=== PATIENT | male | born 1960 | race Caucasian/White ===

== ENCOUNTER 2017-04-21 12:26 | Emergency (ER) | payer SELFPAY ==
[~2017-04-21] VITALS: Ht 179.1 cm; Wt 73.9 kg
--- NOTE | 2017-04-21 12:49 | ED HAND/WRIST INJURY COMPLAINT ---
History of Present Illness General Chief Complaint: Fall Stated Complaint: LEFT HAND AND FOOT INJURY, FELL ON ICE Source: patient, old records Exam Limitations: no limitations Vital Signs & Intake/Output Vital Signs & Intake/Output Vital Signs Date Time Temp Pulse Resp B/P B/P Pulse O2 O2 Flow FiO2 Mean Ox Delivery Rate 04/21 1414 98.5 68 18 154/84 100 04/21 1230 99.7 72 18 148/97 100 Room Air Allergies Coded Allergies: No Known Allergies (04/21/17) Triage Note: PT STATES THAT 4 WEEKS AGO HE FELL AND HURT HIS L WRIST, STATES THAT PAIN WENT AWAY. WOKE 2 DAYS AGO WITH L WRIST SWOLLEN A ND WARM TO THE TOUCH. HAS BEEN TAKING ADVIL WITH NO RELIEF. Triage Nurses Notes Reviewed? yes Occurred: 1 month ago Duration: constant Timing: recent history Injury Environment: home Severity: moderate Severity Numbers: 5 Pain/Injury Location: Left: Wrist. Context: fall Method of Injury: fall Modifying Factors: Worsens With: movement. Associated Symptoms: swelling HPI: 56-year-old male with no medical history presents to ER complaining one-day history of left wrist swelling pain worse with range of motion. He states about 1 month ago he fell on his wrist he's been taking Tylenol and Advil and was doing better up until this morning when he states he woke up and it was swollen. He denies any bruising redness warmth fever chills. He states that he slipped on ice about a month ago he also injured the top of his left foot. He has not sought care for the symptoms until today. No hip knee or other leg pain there is no other injury from the fall no numbness or tingling (Ben Rai) Past History Travel History Traveled to [place] past 21 day No Medical History Any Pertinent Medical History? none Neurological: NONE EENT: NONE Cardiovascular: NONE Respiratory: NONE Gastrointestinal: NONE Renal: NONE Musculoskeletal: NONE Psychiatric: NONE Endocrine: NONE Blood Disorders: NONE Cancer(s): NONE SHAKE CUTTER/Reproductive: NONE Surgical History Surgical History: non-contributory Psychosocial History What is your primary language Ecuadorean Tobacco Use: Never used ETOH Use: denies use Illicit Drug Use: denies illicit drug use Family History Hx Contributory? No (Ben Rai) Review of Systems Review of Systems Constitutional: Reports: see HPI. Comments Review of systems: See HPI, All other systems negative. Constitutional, no chills no fever, no malaise HEENT: no sore throat no congestion Cardiovascular: No chest pain Skin: no rashes, no change in skin Respiratory: No dyspnea no cough no sputum GI: No nausea no vomiting, no diarrhea : No dysuria (+)No joint pain, no back pain Neurologic: , no headache Heme/endocrine: No bruising Immunology: No lymphadenopathy (Ben Rai) Physical Exam Physical Exam General Appearance: well developed/nourished, no apparent distress, alert Hand Left: tenderness over the dorsal wrist Hand Right: normal inspection, normal range of motion Comments: Well-developed well-nourished patient in no apparent distress. HEENT: Atraumatic, extraocular motion intact Neck: Supple, FROM Back: FROM Respiratory: No respiratory distress. Patient speaking in full complete sentences. Shoulder: Atraumatic/Stable. FROM . Elbow: Atraumatic/stable. FROM. No laxity Upper arm/Forearm: Atraumatic. Nontender. No edema, 5 out of 5 manager installation strength noted to bilateral upper extremities Hand/Wrist: swelling and tendenress to the dorsal wrist, no ecchymosis, no erythema, Skin intact. from however pt has pain with flexion/extension of wrist Pulses: Normal/equal radial pulses bilaterally. Brisk cap refill Hip/Pelvis: Atraumatic/Stable. FROM. Knee: Atraumatic/stable. FROM Leg: Atraumatic. Nontender. No edema, 5 out of 5 strength in the lower extremity, normal dorsiflexion of great toe bilaterally, gross sensation is intact Ankle/Foot: tenderness over the left dorsal foot, plantar aspect is aAtraumatic /stable. no erythema, warmth, or swelling.Skin intact. FROM of ankle and foot. No swelling, no effusion. No laxity on exam Pulses: Normal/equal DP/PT pulses bilaterally. Brisk cap refill Neuro: awake, alert, and oriented to person, place and time. There were no obvious focal neurologic abnormalities. Skin: Warm & dry;No appreciable rash on exposed skin Psych: Mood affect normal, normal memory normal judgment. (Ben Rai) Progress Differential Diagnosis: cellulitis, contusion, compartment syndrome, dislocation , fracture, septic arthritis, sprain Plan of Care: Orders Procedure Date/time Status Durable Medical Equipment 04/21 1425 Active Patient medicated with Motrin x-rays ordered I discussed with the patient at length all of their results. left wrist cock-up brace applied I had an extensive conversation regarding need for close follow up with their primary care physician/ ortho this week as well as return precautions. I answered all of their questions, they feel comfortable with the plan and follow-up care. Diagnostic Imaging: Viewed by Me: Radiology Read. Discussed w/RAD: Radiology Read. Radiology Impression: PATIENT: ALKA MENDOZA PRESENT AGE: 56 PATIENT ACCOUNT NO: [id number] : 62 LOCATION: [facility] ORDERING PHYSICIAN: Ben MIN SERVICE DATE: 04/21/17 EXAM TYPE: RAD - XRY- WRIST COMPLETE-LEFT EXAMINATION: XR WRIST, LEFT CLINICAL INFORMATION: Fall, pain COMPARISON: None TECHNIQUE: PA, lateral, scaphoid view and oblique views of the left wrist. FINDINGS: The bones and soft tissues are normal. No acute fracture. Alignment is anatomic with normal joint spaces. No erosions or abnormal soft tissue calcifications. IMPRESSION: No acute fracture or dislocation. DICTATED BY : Chace Chavis MD DATE/TIME DICTATED:04/21/171439 [employer] MANAGER: NIGEL DATE/TIME TRANSCRIBED:04/21/171439 CONFIDENTIAL, DO NOT COPY WITHOUT APPROPRIATE AUTHORIZATION. <Electronically signed in Other Vendor System> SIGNED BY: Chace Chavis MD 04/21/171447, PATIENT: ALKA MENDOZA PRESENT AGE: 56 PATIENT ACCOUNT NO: [id number] : 64 LOCATION: [facility] ORDERING PHYSICIAN: Ben MIN SERVICE DATE : 04/21/17 EXAM TYPE: RAD - XRY-FOOT COMPLETE, LEFT EXAMINATION: XR FOOT, LEFT CLINICAL INFORMATION: Fall, pain COMPARISON: None TECHNIQUE: AP, lateral, and oblique views of the left foot. FINDINGS: There are degenerative changes of the tarsometatarsal joints, particularly the second and third TMT joints. There is a transverse linear line at the base of the fifth metatarsal bone, seen only on the AP view, likely artifactual. No acute fracture or dislocation of left foot is seen. The soft tissue is unremarkable. IMPRESSION: No acute fracture or dislocation of the left foot. DICTATED BY: Chace Chavis MD DATE/TIME DICTATED :04/21/171444 [employer] MANAGER:NIGEL DATE/TIME TRANSCRIBED:04/21/171444 CONFIDENTIAL, DO NOT COPY WITHOUT APPROPRIATE AUTHORIZATION. < Electronically signed in Other Vendor System> SIGNED BY: Chace Chavis MD 04/21/17 1453, PATIENT: ALKA MENDOZA PRESENT AGE: 56 PATIENT ACCOUNT NO: [id number] : 64 LOCATION: [facility] ORDERING PHYSICIAN: Ben MIN SERVICE DATE: 04/21/17 EXAM TYPE: RAD - XRY-HAND, LEFT EXAMINATION: XR HAND, LEFT CLINICAL INFORMATION: Pain status post fall. Evaluate for fracture. COMPARISON: Left wrist films dated 04/21/2017. TECHNIQUE: PA, lateral, and oblique views of the left hand. FINDINGS: Mild soft tissue swelling over the dorsum of the hand is seen. No acute fracture or dislocation is seen. Periarticular osteopenia and mild soft tissue swelling, joint space narrowing and minimal spurring is seen involving the proximal and distal interphalangeal joints of all digits. Mild degenerative changes also seen at the first metacarpophalangeal joint. No definite erosive changes or soft tissue calcifications seen. IMPRESSION: 1. Dorsal soft tissue swelling. No acute fracture or dislocation. 2. Mild degenerative changes involving all digits as discussed above. DICTATED BY: Rocío Turner MD DATE/TIME DICTATED:04/21/171447 [employer] MANAGER:NIGEL DATE/TIME TRANSCRIBED:04/21/171447 CONFIDENTIAL, DO NOT COPY WITHOUT APPROPRIATE AUTHORIZATION. <Electronically signed in Other Vendor System> SIGNED BY: Rocío Turner MD 04/21/17 1454 (Yanick MIN,Ben) Departure Departure Disposition: HOME OR SELF CARE Condition: Stable Clinical Impression Primary Impression: Wrist sprain Qualifiers: Encounter type: initial encounter Laterality: left Qualified Code: S63.502A - Unspecified sprain of left wrist, initial encounter Secondary Impressions: Foot sprain Qualifiers: Encounter type: initial encounter Laterality: left Qualified Code: S93.602A - Unspecified sprain of left foot, initial encounter Referrals: [place] BENITEZ,[facility] (PCP/Family) Radha BENITEZ,Reid Additional Instructions: Rest, ice, tylenol or motrin for pain. Wear the brace as discussed. follow up with your pmd or orthopedist dr courtney if symptos persist. return with any concerns Departure Forms: Customer Survey General Discharge Information (Yanick MIN,Ben) PA/PRINT ROOM WORKER Co-Sign Statement Statement: ED Attending supervision documentation- [] I saw and evaluated the patient. I have also reviewed all the pertinent lab results and diagnostic results. I agree with the findings and the plan of care as documented in the PA's/PRINT ROOM WORKER's documentation. [X] I have reviewed the ED Record and agree with the PA's/PRINT ROOM WORKER's documentation. [] Additions or exceptions (if any) to the PAs/PRINT ROOM WORKER's note and plan are summarized below: [] (Silvano BENITEZ,Narinder Shepard)
--- NOTE | 2017-04-21 14:48 | RADIOLOGY REPORT ---
EXAMINATION: XR WRIST, LEFT CLINICAL INFORMATION: Fall, pain COMPARISON: None TECHNIQUE: PA, lateral, scaphoid view and oblique views of the left wrist. FINDINGS: The bones and soft tissues are normal. No acute fracture. Alignment is anatomic with normal joint spaces. No erosions or abnormal soft tissue calcifications. IMPRESSION: No acute fracture or dislocation.
--- NOTE | 2017-04-21 14:51 | RADIOLOGY REPORT ---
EXAMINATION: XR FOOT, LEFT CLINICAL INFORMATION: Fall, pain COMPARISON: None TECHNIQUE: AP, lateral, and oblique views of the left foot. FINDINGS: There are degenerative changes of the tarsometatarsal joints, particularly the second and third TMT joints. There is a transverse linear line at the base of the fifth metatarsal bone, seen only on the AP view, likely artifactual. No acute fracture or dislocation of left foot is seen. The soft tissue is unremarkable. IMPRESSION: No acute fracture or dislocation of the left foot.
--- NOTE | 2017-04-21 14:54 | RADIOLOGY REPORT ---
EXAMINATION: XR HAND, LEFT CLINICAL INFORMATION: Pain status post fall. Evaluate for fracture. COMPARISON: Left wrist films dated 04/21/2017. TECHNIQUE: PA, lateral, and oblique views of the left hand. FINDINGS: Mild soft tissue swelling over the dorsum of the hand is seen. No acute fracture or dislocation is seen. Periarticular osteopenia and mild soft tissue swelling, joint space narrowing and minimal spurring is seen involving the proximal and distal interphalangeal joints of all digits. Mild degenerative changes also seen at the first metacarpophalangeal joint. No definite erosive changes or soft tissue calcifications seen. IMPRESSION: 1. Dorsal soft tissue swelling. No acute fracture or dislocation. 2. Mild degenerative changes involving all digits as discussed above.
== END 2017-04-21 14:56 ==
LOC: ERH 12:26
DX: S63.502A Unspecified sprain of left wrist, initial encounter (principal); S93.602A Unspecified sprain of left foot, initial encounter; W00.0XXA Fall on same level due to ice and snow, initial encounter; Y93.9 Activity, unspecified; Y92.9 Unspecified place or not applicable
CPT/HCPCS: 73110-LT; 73130-LT; 73630-LT